=== PATIENT | male | born 2000 | race Caucasian/White ===

== ENCOUNTER 2021-05-08 00:28 | Day surgery (SDC) | payer BC, SELFPAY ==
[2021-05-01 09:45] VITALS: BMI 35.6
--- NOTE | 2021-05-01 09:51 | PC.NURSE ---
Report to the Outpatient Waiting Room, entrance under the green pavilion located off [facility], at time 1200 on date 05/08/21. OR Time: 1400. - You and your visitor will be asked a series of questions to screen for COVID 19 for your protection. - A mask is required within the hospital. - Only one visitor is allowed at this time. Patient visitors will be guided where to wait when not with patient. Preoperative COVID Testing Requirements: No COVID Test needed if: (proof is required; if not received patient will have Rapid Test prior to entry) - Patient has received COVID Vaccine at least 14 days prior to procedure date or - Patient has positive COVID test result within last 90 days of surgery date. COVID Test needed if above criteria is not met If not COVID vaccinated a COVID test must be conducted within 72 hours of surgery and patient is asked to isolate self from time of testing until procedure. You will go to the [facility] for your COVID testing. The [facility] is located at the corner of [address] [facility]. You will only be called if COVID results are positive and your surgeon may reschedule your elective surgery date. Patients may have clear liquids (water, carbonated beverages, clear teas, apple juice) until 3 hours prior to surgery with a maximum of 20 ounces. - No food from midnight until time of surgery - Infants may have breast milk until 4 hours before surgery, infant formula 6 hours prior to surgery. - Children will be allowed to drink immediately following surgery. If applicable, please bring a bottle or sippy cup to assist with drinking. Juice, water, soda, and popsicles are readily available. For infants on formula, please bring formula the day of surgery. Pacifiers are allowed. Take the following medications with a SIP of water the morning of surgery: N/A Medications to discontinue per physician: N/A Date to take last dose: N/A Please no make-up, nail armenian, hairspray, perfume, deodorant, or body powder the day of surgery. No jewelry (including any body piercings) or valuables the day of surgery, leave them at home. Please take a shower or bath the night before, or the morning of, surgery with an antibacterial soap. Wear comfortable, loose fitting clothing. Children are encouraged to wear pajamas. - Jewelry must be removed prior to entering the operating room. Rings and piercings that are not removed may be cut off. - The hospital will not accept responsibility for valuables. - Please leave all valuables, including medications, at home the day of surgery. If you are going home after surgery, a licensed patient transportation driver must drive you home. - NO public transportation without another adult. - We recommend that an adult stay with you for 24 hours following discharge. - We also recommend that you do not drive, make important decision, drink alcoholic beverages, or take any drugs that were not prescribed by your health care provider for at least 24 hours after your discharge time. For Pediatric surgeries, we recommend two adults accompany the child home (only one inside the building at this time). Follow any additional instructions given to you from your surgeon. Telephone instructions given to PATRICK CASTANEDA and asked if any additional questions and then verbalized understanding. Patient advised to call surgeon office or pre surgery nurse liaison [phone] if any additional questions.
[2021-05-08] VITALS (7 sets, daily range): BP systolic 104–152; BP diastolic 57–91; PULSE 56–80; RESP 10–20; TEMP 36.4–37.1; O2SAT 97–100
[2021-05-08] MEDS: LACTATED RINGERS 1,000 ML 30 ML IV CONT ×2 (12:12→16:08)
--- NOTE | 2021-05-08 13:14 | WPDANESEPPF ---
Anes - Initial Pre Proc Eval Procedure: Operation Date: 05/08/21 14:00 Proposed Procedures p Excision Left Chest Wall Mass Times Four, Excision Left Lower Quadrant Abdominal Wall Mass Times Two - Montana Durant DO Date/Time: 05/08/21 13:14 Surgeon: Montana Durant DO Pre Op Diagnosis: 3cm LLQ Abd Wall Mass X Two Patient Data Age: 21 Gender: M Height: 1.91 m Weight: 127.6 kg Last Vital Signs Temp 37.1 C 05/08/21 12:16 Pulse 76 05/08/21 12:16 Resp 16 05/08/21 12:16 BP 137/83 05/08/21 12:16 Pulse Ox 99 05/08/21 12:16 Allergies Allergy/AdvReac Type Severity Reaction Status Date / Time No Known Allergies Allergy Verified 05/08/21 11:47 Home Medications Medication Instructions Recorded Confirmed Type No Home Medications 04/09/21 05/08/21 History Patient hx anesthesia problems: none Family hx anesthesia problems: none Results Review: All pre-operative results and documents have been reviewed as part of the pre-operative evaluation. 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 Informed Consent: The patient's anesthetic plan and its attendant risks and benefits were discussed with the patient/family/POA. Questions were solicited and answers provided to the satisfaction of the patient/family/POA.
--- NOTE | 2021-05-08 14:15 | WPDHPUPDATE1 ---
History and Physical Update Update Date/Time: 05/08/21 14:15 History and Physical has been reviewed, including an updated exam of the patient. There are NO changes in the patient's condition. Risks, benefits, and alternatives have been discussed and questions answered. Patient agrees to proceed with procedure.
[2021-05-08] MEDS: ceFAZolin 3 GM/D5W 100 ML 100 ML IVPB (14:40)
[2021-05-08] MEDS: LIDO 1%/EPINEPHRINE 1:100,000 50 ML VIAL 30 ML INFILTRATE (14:55)
--- NOTE | 2021-05-08 15:38 | W.PM.PROC2 ---
Procedure Note - Detailed Date of Procedure 05/08/21 Pre-op Diagnosis Chest wall mass x4, abdominal wall mass x2 Post-op Diagnosis same Procedure Performed 1. Excision 3 cm abdominal wall mass x2 2. Excision 3 cm left chest wall mass x2 3. Excision 2 cm left chest mass x2 Surgeon Montana Durant, DO Anesthesia MAC and local (1% lidocaine with epinephrine) Indications This is a 21-year-old man who presented with multiple lumps on his abdominal wall and chest wall. These were mobile masses that gradually enlarged over time. He has some discomfort in these areas. The masses appeared likely to be lipomas. Discussions were made with the patient about treatment options and decision was made to proceed with excision of abdominal wall mass x2 and chest wall mass x4. Findings All masses were excised with separate incisions. There were to left lower abdominal wall masses. Each mass measured 3 cm. Two left chest wall masses measured 3 cm and two of the left chest wall masses measured 2 cm. All masses were completely excised and sent for pathology. All masses appeared likely to be lipomas. Description of Procedure Procedure as well as risks, benefits, and alternatives were discussed with the patient. Written consent was obtained and placed in chart prior to procedure. Patient was brought back to surgical suite. He was placed supine on operating table. Time-out was done to confirm patient and procedure. IV sedation was then administered by the anesthesia department. His abdomen and chest wall area was prepped and draped in sterile fashion using chlorhexidine prep. 1% lidocaine with epinephrine was infiltrated locally around each of the incisions. A 3 cm transverse incision was made over the lower left abdominal wall mass using a 15 blade scalpel. Electrocautery was used for hemostasis and for dissection of the surrounding subcutaneous attachments. The mass was completely excised and sent to the lab for pathology. The skin edges were then reapproximated using 4-0 Monocryl subcuticular suture. Another 3 cm transverse incision was made along the left lateral abdominal wall using a 15 blade scalpel. Electrocautery was used for hemostasis and for dissection around the mass. The mass was carefully dissected completely and sent to the lab for pathology. Hemostasis appeared adequate. The skin edges were approximated using 4 Monocryl subcuticular suture. The left chest wall masses were then excised. A 3 cm transverse incision was made over the 1st chest wall mass using a 15 blade scalpel. Electrocautery was used for hemostasis and for dissection of the mass completely. Hemostasis appeared adequate and the mass was completely removed. The skin edges were approximated using 4 Monocryl subcuticular suture. A 3 cm transverse incision was made over the next chest wall mass. Electrocautery was used for hemostasis and for dissection of the mass completely. The mass was completely excised and sent for pathology. Hemostasis appeared adequate id. The skin edges were then approximated using 4 Monocryl subcuticular suture. A 2 cm incision was made over the next chest wall mass using a 15 blade scalpel. The mass was carefully excised with electrocautery completely. Hemostasis appeared adequate. The skin edges were approximated using 4-0 Monocryl subcuticular suture. The last chest wall mass was then excised with another 2 cm incision over the chest wall mass. Electrocautery was used for hemostasis and for dissection of the chest wall mass free. The mass was completely excised and hemostasis appeared adequate skin edges were then reapproximated using 4 Monocryl subcuticular suture. Exofin glue was then applied over each of the incisions. The patient was then awakened from anesthesia and transferred to recovery. Estimated Blood Loss 5 Pathology yes (Left chest wall mass x4, left abdominal wall mass x2) Complications No immediate complications Condition stable D
[2021-05-08] MEDS: oxyCODONE HCL (*CRX) 5 MG TAB IR PO (17:12)
== END 2021-05-08 17:13 | disposition home or self-care (01) ==
PROVIDERS: PCP Internal Medicine; Visit Provider Surgery
PROC: (CPT 21552; principal; 2021-05-08 14:00)
DX: D17.1 Benign lipomatous neoplasm of skin and subcutaneous tissue of trunk (principal); E66.9 Obesity, unspecified; Z68.35 Body mass index [BMI] 35.0-35.9, adult
CPT/HCPCS: 21552 ×2; 21555 ×2; 22903 ×2; 88304; A9270; J0690; J1940; J2250; J2270; J2405; J2704; J7120